=== PATIENT | male | born 1955 | race African-American/Black ===

== ENCOUNTER 2016-11-06 09:13 | Emergency (ER) | payer OTHER, BC ==
[2016-11-06] MEDS ORDERED: ASPIRIN 81 MG TABLET, CHEWABLE PO ONE (09:16)
[2016-11-06 09:44] LABS: ABSOLUTE EOSINOPHILS # (AUTO) 0.1 10^3/uL (0.0-0.6); ABSOLUTE LYMPHOCYTES (AUTO) 1.7 10^3/uL (0.5-4.7); ABSOLUTE MONOCYTES (AUTO) 0.6 10^3/uL (0.1-1.4); ABSOLUTE NEUT (AUTO) 3.9 10^3/uL (1.7-8.2); BASOPHILS % (AUTO) 0.6 % (0-2); EOSINOPHILS % (AUTO) 0.8 % (0-6); HEMATOCRIT 39.8 % (37.9-51.0); HEMOGLOBIN 13.5 g/dL (13.5-17.0); HGB HCT DIFFERENCE 0.7; LYMPHOCYTES % (AUTO) 27.1 % (13-45); MEAN CORPUSCULAR HEMOGLOBIN 30.5 pg (27.0-33.4); MEAN CORPUSCULAR HGB CONC 33.8 g/dL (32.0-36.0); MEAN CORPUSCULAR VOLUME 90 fl (80-97); MONOCYTES % (AUTO) 8.8 % (3-13); RED BLOOD COUNT 4.41 10^6/uL (4.35-5.55); RED CELL DISTRIBUTION WIDTH 13.5 % (11.5-14.0); SEGMENTED NEUTROPHILS % (AUTO) 62.7 % (42-78); WHITE BLOOD COUNT 6.3 10^3/uL (4.0-10.5)
[2016-11-06 10:09] LABS: ALANINE AMINOTRANSFERASE 34 U/L (21-72); ALBUMIN 3.6 g/dL (3.5-5.0); ALKALINE PHOSPHATASE 63 U/L (38-126); ANION GAP 9 (5-19); ASPARTATE AMINO TRANSFERASE 22 U/L (17-59); BILIRUBIN,DIRECT 0.3 mg/dL (0.0-0.4); BILIRUBIN,TOTAL 0.6 mg/dL (0.2-1.3); BLOOD UREA NITROGEN 20 mg/dL (7-20); CALCIUM 8.4 mg/dL (8.4-10.2); CARBON DIOXIDE 23 mmol/L (22-30); CHLORIDE 109 mmol/L (98-107); CREATINE KINASE 221 U/L (55-170); CREATININE RESULT 1.03 mg/dL (0.52-1.25); GLUCOSE 94 mg/dL (75-110); POTASSIUM 4.1 mmol/L (3.6-5.0); SODIUM 141.3 mmol/L (137-145); TOTAL PROTEIN 6.1 g/dL (6.3-8.2)
[2016-11-06 10:19] LABS: CREATINE KINASE MB 1.24 ng/mL (<4.55)
[2016-11-06 10:20] LABS: TROPONIN I < 0.012 ng/mL
--- NOTE | 2016-11-06 10:55 | RADIOLOGY REPORT (SQ) ---
EXAM DESCRIPTION: CHEST SINGLE VIEW COMPLETED DATE/TIME: 11/06/2016 10:44 am REASON FOR STUDY: cp COMPARISON: None. EXAM PARAMETERS: NUMBER OF VIEWS: One view. TECHNIQUE: Single frontal radiographic view of the chest acquired. RADIATION DOSE: NA LIMITATIONS: None. FINDINGS: LUNGS AND PLEURA: Faint density in the lateral right lung base with indistinct appearance of the costophrenic angle. Left lung relatively clear. Mild chronic appearing interstitial changes. MEDIASTINUM AND HILAR STRUCTURES: No masses. Contour normal. HEART AND VASCULAR STRUCTURES: Heart normal in size. Normal vasculature. BONES: No acute findings. HARDWARE: None in the chest. OTHER: No other significant finding. IMPRESSION: POSSIBLE ATELECTASIS OR EARLY INFILTRATE IN THE LATERAL RIGHT LUNG BASE. POSSIBLE SMALL RIGHT PLEURAL EFFUSION. TECHNICAL DOCUMENTATION: JOB ID: [id number]
[2016-11-06] MEDS ORDERED: ALBUTEROL SULFATE HFA (90 MCG/PUFF) 8 GM MDI (1 MDI/ER DISP) IH PRN (10:59)
--- NOTE | 2016-11-06 11:00 | ER Document Report ---
ED Cardiac - General Chief Complaint: Chest Pain > 30 Stated Complaint: CHEST PAIN Time Seen by Provider: 11/06/16 09:38 Mode of Arrival: Medic Information source: Patient Notes: Patient is a 61-year-old male who presents to the ER today for chest pain in the center of his chest since yesterday. Patient states that it is just a tightness more than a pain. He admits to being on antibiotics recently for sinusitis and bronchitis, states that he did finish those. States that his cough has continued and is productive. He denies any nausea, vomiting, shortness of breath, wheezing that he is noticed. He denies any radiation of the pain anywhere. He denies any history of heart attack or stroke, does take medications for high cholesterol. He denies any fevers or chills that he knows of. TRAVEL OUTSIDE OF THE [place] IN LAST 30 DAYS: No - Related Data Allergies/Adverse Reactions: codeine [Codeine] Adverse Reaction (Verified 03/22/14 18:14) Past Medical History - General Information source: Patient - Social History Smoking Status: Former Smoker Chew tobacco use (# tins/day): No Frequency of alcohol use: None Drug Abuse: None Family History: Reviewed & Not Pertinent Patient has suicidal ideation: No Patient has homicidal ideation: No - Past Medical History Cardiac Medical History: Reports: Hx Hypertension Pulmonary Medical History: Reports: Hx Pneumonia Renal/ Medical History: Denies: Hx Peritoneal Dialysis Malignancy Medical History: Reports Hx Colorectal Cancer, Reports Hx Lung Cancer Musculoskeltal Medical History: Reports Hx Arthritis Psychiatric Medical History: Reports: Hx Attention Deficit Hyperactivity Disorder, Hx Depression Past Surgical History: Reports: Hx Bowel Surgery - colon, Hx Orthopedic Surgery - bilateral hip replacement - Immunizations Hx Diphtheria, Pertussis, Tetanus Vaccination: Yes Review of Systems - Review of Systems Constitutional: No symptoms reported EENT: No symptoms reported Cardiovascular: No symptoms reported Respiratory: See HPI Gastrointestinal: No symptoms reported Genitourinary: No symptoms reported Male Genitourinary: No symptoms reported Musculoskeletal: No symptoms reported Skin: No symptoms reported Hematologic/Lymphatic: No symptoms reported Neurological/Psychological: No symptoms reported Physical Exam - Vital signs Vitals: Temp Resp Pulse Ox 98.6 F 16 98 11/06/16 09:16 11/06/16 09:16 11/06/16 09:16 - Notes Notes: PHYSICAL EXAMINATION: GENERAL: Well-appearing and in no acute distress. HEAD: Atraumatic, normocephalic. EYES: Pupils equal round and reactive to light, extraocular movements intact, sclera anicteric, conjunctiva are normal. ENT: ear canals without erythema or foreign body, TMs pearly chávez with good bony landmarks, nares patent, oropharynx clear without exudates. Moist mucous membranes. NECK: Normal range of motion, supple without lymphadenopathy LUNGS: CTAB and equal. No wheezes rales or rhonchi. HEART: Regular rate and rhythm without murmurs ABDOMEN: Soft, no tenderness. No guarding, no rebound BACK: no vertebral tenderness, normal ROM GI/: no CVA tenderness EXTREMITIES: Normal range of motion, no pitting edema. No cyanosis. NEUROLOGICAL: Cranial nerves grossly intact. Normal sensory/motor exams. PSYCH: Normal mood, normal affect. SKIN: Warm, Dry, normal turgor, no rashes or lesions noted Course - Re-evaluation Re-evalutation: 11/06/16 10:57 Patient is pain-free on my exam, cardiac enzymes are negative, chest x-ray reports possible infiltrate versus atelectasis versus pleural effusion, with patient's clinical symptoms I will treat for pneumonia at this time. EKG reveals a normal sinus rhythm with a rate of 54 bpm with no evidence of ischemia. - Vital Signs Vital signs: Temp Pulse Resp BP Pulse Ox 98.5 F 17 119/66 97 11/06/16 09:29 11/06/16 10:01 11/06/16 10:01 11/06/16 10:01 - Laboratory Result Diagrams: 11/06/16 09:30 11/06/16 09:30 Laboratory results interpreted by me: 11/06/16 11/06/16 09:30 09:30 Plt Count 146 L Chloride 109 H Creatine Kinase 221 H Total Protein 6.1 L Discharge - Discharge Clinical Impression: Pneumonia Qualifiers: Pneumonia type: due to unspecified organism Laterality: right Lung location: lower lobe of lung Qualified Code(s): J18.1 - Lobar pneumonia, unspecified organism Condition: Stable Disposition: HOME, SELF-CARE Additional Instructions: Return immediately for any new or worsening symptoms. Follow up with primary care provider, call tomorrow to make followup appointment. Prescriptions: Levofloxacin [Levaquin 750 mg Tablet] 750 mg PO DAILY #10 tablet
[2016-11-06 11:09] VITALS: BP 133/71
--- NOTE | 2016-11-06 16:44 | EKG REPORT ---
SEVERITY:- ABNORMAL ECG - SINUS RHYTHM NONSPECIFIC T ABNORMALITIES, INFERIOR LEADS : Confirmed by: Tigist Davis MD 06-Nov-2016 16:43:54
== END 2016-11-06 11:25 | disposition home or self-care (01) ==
LOC: ER 09:13
DX: J18.1 Lobar pneumonia, unspecified organism (principal); R07.89 Other chest pain; R05 Cough; E78.00 Pure hypercholesterolemia, unspecified; I10 Essential (primary) hypertension; Z79.899 Other long term (current) drug therapy; Z87.891 Personal history of nicotine dependence; Z85.048 Personal history of other malignant neoplasm of rectum, rectosigmoid junction, and anus; Z85.118 Personal history of other malignant neoplasm of bronchus and lung
CPT/HCPCS: 93005; 99285; 36415; 82553; 82550; 85025; 80053; 84484; 71010; 93010; J3490

== ENCOUNTER → 2018-06-03 | Outpatient (CLI) | payer OTHER | LOC: OD 14:11 | PROVIDERS: ATTEND Otolaryngology | DX: J30.9 Allergic rhinitis, unspecified (principal) | CPT/HCPCS: 36415; 82785; 86003 ==

== ENCOUNTER 2018-08-28 14:22 | Emergency (ER) | payer OTHER ==
--- NOTE | 2018-08-28 15:35 | ER Document Report ---
ED Medical Screen (RME) - General Chief Complaint: Chest Pain Stated Complaint: CHEST PAIN Time Seen by Provider: 08/28/18 15:24 Primary Care Provider: ANA CORBIN MD [Primary Care Provider] - Follow up as needed TRAVEL OUTSIDE OF THE [place] IN LAST 30 DAYS: No - HPI Notes: 08/28/18 15:34 Patient is a 62-year-old male history of hypertension and hyperlipidemia who presents complaining of left lower chest pain that does not radiate and has been present for 2 days. Patient states the pain is sharp and is worse with movements/activity. Patient states that when he was getting up from yoga he had recurrence of the sharp pain as well as feeling lightheaded at that time. He is otherwise able to eat and drink without difficulty. He is urinating normally having normal bowel movements. Denies CANTOR, fever, neck pain, URI, SOB, Abd pain, dysuria, back pain, or rash. I have treated and performed a rapid initial assessment of this patient. A comprehensive ED assessment and evaluation of the patient, analysis of test results and completion of medical decision making process will be conducted by additional ED providers. PHYSICAL EXAMINATION: GENERAL: Well-appearing, well-nourished and in no acute distress. A&Ox4. Answers questions appropriately. LUNGS: Breath sounds clear to auscultation bilaterally and equal. No wheezes rales or rhonchi. HEART: Regular rate and rhythm without murmurs, rubs, gallops. Extremities: No cyanosis, clubbing, or edema b/l. Herb negative bilaterally. No lower extremity asymmetry. NEUROLOGICAL: Normal speech, normal gait. PSYCH: Normal mood, normal affect. - Related Data Allergies/Adverse Reactions: codeine [Codeine] Adverse Reaction (Verified 08/28/18 14:27) Past Medical History - Past Medical History Cardiac Medical History: Reports: Hx Hypertension Pulmonary Medical History: Reports: Hx Pneumonia Renal/ Medical History: Denies: Hx Peritoneal Dialysis Malignancy Medical History: Reports Hx Colorectal Cancer, Reports Hx Lung Cancer Musculoskeltal Medical History: Reports Hx Arthritis Psychiatric Medical History: Reports: Hx Attention Deficit Hyperactivity Disorder, Hx Depression Past Surgical History: Reports: Hx Bowel Surgery - colon, Hx Orthopedic Surgery - bilateral hip replacement - Immunizations Hx Diphtheria, Pertussis, Tetanus Vaccination: Yes Physical Exam - Vital signs Vitals: Temp Pulse Resp BP Pulse Ox 97.9 F 62 20 144/67 H 95 08/28/18 14:40 08/28/18 14:40 08/28/18 14:40 08/28/18 14:40 08/28/18 14:40 Course - Vital Signs Vital signs: Temp Pulse Resp BP Pulse Ox 97.9 F 62 20 144/67 H 95 08/28/18 14:40 08/28/18 14:40 08/28/18 14:40 08/28/18 14:40 08/28/18 14:40 Doctor's Discharge - Discharge Referrals: ANA CORBIN MD [Primary Care Provider] - Follow up as needed
--- NOTE | 2018-08-28 16:02 | RADIOLOGY REPORT (SQ) ---
EXAM DESCRIPTION: CHEST SINGLE VIEW COMPLETED DATE/TIME: 08/28/2018 3:53 pm REASON FOR STUDY: CP COMPARISON: AP chest 11/06/2016 EXAM PARAMETERS: NUMBER OF VIEWS: One view. TECHNIQUE: Single frontal radiographic view of the chest acquired. RADIATION DOSE: NA LIMITATIONS: None. FINDINGS: LUNGS AND PLEURA: Probable chronic scarring along the right lateral costophrenic sulcus ad jacent to old right lower lateral thoracotomy defect. There is bulging of lung parenchyma lateral to the right 8th rib. Correlate with trauma or surgical history. This is similar compared to 7. Left hemithorax unremarkable. No pleural effusions or pneumothorax. MEDIASTINUM AND HILAR STRUCTURES: No masses. Contour normal. HEART AND VASCULAR STRUCTURES: Heart normal in size. Normal vasculature. BONES: No acute findings. HARDWARE: None in the chest. OTHER: No other significant finding. IMPRESSION: Old postsurgical change with thoracotomy along the right lateral 7th and 8th ribs. Scar ring in the periphery of the right lung with bulging of lung parenchymal lateral to the right 8th rib . No acute findings TECHNICAL DOCUMENTATION: JOB ID: [id number] [employer]- All Rights Reserved Reading location - IP/workstation name: [email or web address]
[2018-08-28 16:10] LABS: ABSOLUTE LYMPHOCYTES (AUTO) 1.7 10^3/uL (0.5-4.7); ABSOLUTE MONOCYTES (AUTO) 0.6 10^3/uL (0.1-1.4); ABSOLUTE NEUT (AUTO) 3.7 10^3/uL (1.7-8.2); BASOPHILS % (AUTO) 0.4 % (0-2); EOSINOPHILS % (AUTO) 0.4 % (0-6); HEMATOCRIT 42.5 % (37.9-51.0); HEMOGLOBIN 13.8 g/dL (13.5-17.0); LYMPHOCYTES % (AUTO) 27.8 % (13-45); MEAN CORPUSCULAR HEMOGLOBIN 29.1 pg (27.0-33.4); MEAN CORPUSCULAR HGB CONC 32.5 g/dL (32.0-36.0); MEAN CORPUSCULAR VOLUME 90 fl (80-97); MONOCYTES % (AUTO) 10.4 % (3-13); PLATELET COUNT 167 10^3/uL (150-450); RED BLOOD COUNT 4.75 10^6/uL (4.35-5.55); RED CELL DISTRIBUTION WIDTH 13.9 % (11.5-14.0); TOTAL CELLS COUNTED % (AUTO) 100 %; WHITE BLOOD COUNT 6.1 10^3/uL (4.0-10.5)
--- NOTE | 2018-08-28 16:18 | EKG REPORT ---
SEVERITY:- ABNORMAL ECG - sinus rhythm 60/min. ABNRM R PROG, CONSIDER ASMI OR LEAD PLACEMENT BORDERLINE T ABNORMALITIES, LATERAL LEADS : Confirmed by: Alvin Carlisle MD 28-Aug-2018 16:17:18
[2018-08-28 16:29] LABS: ALANINE AMINOTRANSFERASE 43 U/L (21-72); ALBUMIN 3.9 g/dL (3.5-5.0); ALKALINE PHOSPHATASE 69 U/L (38-126); ANION GAP 6 (5-19); ASPARTATE AMINO TRANSFERASE 31 U/L (17-59); BILIRUBIN,DIRECT 0.2 mg/dL (0.0-0.4); BILIRUBIN,TOTAL 0.6 mg/dL (0.2-1.3); BLOOD UREA NITROGEN 19 mg/dL (7-20); CARBON DIOXIDE 28 mmol/L (22-30); CHLORIDE 105 mmol/L (98-107); GLUCOSE 90 mg/dL (75-110); POTASSIUM 4.5 mmol/L (3.6-5.0); SODIUM 139.3 mmol/L (137-145); TOTAL PROTEIN 6.6 g/dL (6.3-8.2)
--- NOTE | 2018-08-29 00:10 | ER Document Report ---
ED General - General Chief Complaint: Chest Pain Stated Complaint: CHEST PAIN Time Seen by Provider: 08/28/18 15:24 Notes: Patient is a pleasant 62-year-old male who presents with complaint of a intermittent sharp pain in his chest. He says the pain comes and lasts 1 to 2 seconds and goes away. So is in the same location below his left breast. No difficulty breathing. No diaphoresis. No fevers. No history of coronary disease. He does have history of hyperlipidemia and hypertension. He says that he works on a regular basis and does run on treadmill. He says he has not had any the pains been running on treadmill. He said they seem to occur more when he is sitting still. Currently is pain-free. No recent extremity pain or swe lling. No other complaints at this time. TRAVEL OUTSIDE OF THE [place] IN LAST 30 DAYS: No - Related Data Allergies/Adverse Reactions: codeine [Codeine] Adverse Reaction (Verified 08/28/18 14:27) Past Medical History - Social History Smoking Status: Unknown if Ever Smoked Frequency of alcohol use: None Drug Abuse: None Family History: Reviewed & Not Pertinent Patient has suicidal ideation: No Patient has homicidal ideation: No - Past Medical History Cardiac Medical History: Reports: Hx Hypertension Pulmonary Medical History: Reports: Hx Pneumonia Renal/ Medical History: Denies: Hx Peritoneal Dialysis Malignancy Medical History: Reports Hx Colorectal Cancer, Reports Hx Lung Cancer Musculoskeletal Medical History: Reports Hx Arthritis Psychiatric Medical History: Reports: Hx Attention Deficit Hyperactivity Disorder, Hx Depression Past Surgical History: Reports: Hx Bowel Surgery - colon, Hx Orthopedic Surgery - bilateral hip replacement - Immunizations Hx Diphtheria, Pertussis, Tetanus Vaccination: Yes Review of Systems - Review of Systems Notes: My Normal Review Basic REVIEW OF SYSTEMS: CONSTITUTIONAL : Denies fever, chills, or sweats. Denies recent illness. EENT: Denies eye, ear, throat, or mouth pain or symptoms. Denies nasal or sinus congestion. CARDIOVASCULAR: Intermittent chest pain RESPIRATORY: Denies cough, cold, or chest congestion. Denies shortness of breath, difficulty breathing, or wheezing. GASTROINTESTINAL: Denies abdominal pain. Denies nausea, vomiting, or diarrhea. MUSCULOSKELETAL: Denies neck or back pain or joint pain or swelling. SKIN: Denies rash or skin lesions. HEMATOLOGIC : Denies easy bruising or bleeding. NEUROLOGICAL: Denies altered mental status or loss of consciousness. Denies headache. Denies weakness or paralysis or loss of use of either side. Denies problems with gait or speech. Denies sensory or motor loss. ALL OTHER SYSTEMS REVIEWED AND NEGATIVE. Physical Exam - Vital signs Vitals: Temp Pulse Resp BP Pulse Ox 97.9 F 62 20 144/67 H 95 08/28/18 14:40 08/28/18 14:40 08/28/18 14:40 08/28/18 14:40 08/28/18 14:40 - Notes Notes: General Appearance: Well nourished, alert, cooperative, no acute distress, no obvious discomfort. Vitals: reviewed, See vital signs table. Head: no swelling or tenderness to the head Eyes: PERRL, EOMI, Conjuctiva clear Mouth: No decreasd moisture Lungs: No wheezing, No rales, No rhonci, No accessory muscle use, good air exchange bilaterally. Heart: Normal rate, Regular rythm, No murmur, no rub Chest wall: No reproducible pain palpation of chest wall. Abdomen: Normal BS, soft, No rigidity, No abdominal tenderness, No guarding, no rebound, no abdominal masses, no organomegaly Extremities: strength 5/5 in all extremities, good pulses in all extremities, no swelling or tenderness in the extremities, no edema. Skin: warm, dry, appropriate color, no rash Neuro: speech clear, oriented x 3, normal affect, responds appropriately to questions. Course - Re-evaluation Re-evalutation: 08/29/18 06:26 On evaluation patient is very well-appearing. His chest pain does not really sound cardiac in nature and that it is just a very quick sharp pain that lasts 1 second and goes away. I cannot reproduce the pain with palpation or with movement. His troponin and EKG are negative. His heart score is a 3 based on age and risk factors alone. If given a point for his story than he would have a heart score of 4. I informed him that based on this the most conservative approach would be to keep in the hospital for further evaluation and possible stress test. This is what I recommend. Patient says he prefers to follow-up outpatient as he has an appoint with his doctor this coming morning for reevaluation of this chest pain. He said that he would have a low threshold to return to ER if he has any recurrent pain, difficulty breathing, or if he felt unwell in any way. I informed patient to return to the ER anytime as were happy to reevaluate him and wants with his best form. He is agreeable to return to the ER if he has any recurrence of his symptoms. He says he will have his primary care doctor set up an outpatient stress test. Dictation of this chart was performed using voice recognition software; therefore, there may be some unintended grammatical errors. - Vital Signs Vital signs: Temp Pulse Resp BP Pulse Ox 97.5 F 60 18 126/75 H 98 08/29/18 01:00 08/29/18 01:00 08/29/18 01:00 08/29/18 01:00 08/29/18 01:00 - Laboratory Result Diagrams: 08/28/18 15:45 08/28/18 15:45 Laboratory results interpreted by me: 08/28/18 15:45 Creatinine 1.41 H Est GFR (Non-Af Amer) 51 L - EKG Interpretation by Me Additional EKG results interpreted by me: 08/29/18 00:05 EKG is reviewed and interpreted by me. EKG shows sinus rhythm with rate of [address] segment elevation or depression. TN interval, QRS duration, QT intervals are within normal range. Old EKG for comparison is from November 06, 2016. This EKG also shows the same small T wave inversions in leads III and aVF. Discharge - Discharge Clinical Impression: Chest pain Qualifiers: Chest pain type: unspecified Qualified Code(s): R07.9 - Chest pain, unspecified Condition: Good Disposition: HOME, SELF-CARE Additional Instructions: As discussed with you, the most conservative approach to managing your chest pain would be to stay in the hospital. This way we could do a stress test sooner rather than later. We do respect your decision to follow-up with your do ctor as you have an appointment with them tomorrow. Please discuss with them the need for stress test. We want you to have a very low threshold to return to the ER immediately if you have any recurrent chest pain, any difficulty breathing, or if you feel unwell in any way. Please take 81 mg of aspirin every day. I have printed off your lab test results so that you can bring them with you to your appointment tomorrow.
[2018-08-29 01:02] VITALS: BP 126/75
--- NOTE | 2018-08-31 09:24 | EKG REPORT ---
SEVERITY:- ABNORMAL ECG - SINUS RHYTHM BORDERLINE LEFT AXIS DEVIATION CONSIDER ANTERIOR INFARCT ABNORMAL T, CONSIDER ISCHEMIA, INFERIOR LEADS : Confirmed by: Alvin Carlisle MD 31-Aug-2018 09:23:15
== END 2018-08-29 01:02 | disposition home or self-care (01) ==
LOC: ER 14:22
DX: R07.9 Chest pain, unspecified (principal); I10 Essential (primary) hypertension
CPT/HCPCS: 36415; 71045; 80053; 84484; 85025; 93005; 93010; 99285